=== PATIENT | male | born 1975 | race Caucasian/White ===

== ENCOUNTER 2022-08-09 15:31 | Outpatient (CLI) | payer BC, SELFPAY ==
[2022-08-09 22:20] LABS: Chloride* 100 mmol/L (96-114)
[2022-08-09 22:21] LABS: Potassium* 4.4 mmol/L (3.6-5.1); Sodium* 139 mmol/L (135-149)
[2022-08-09 22:23] LABS: Alkaline Phosphatase* 99 U/L (40-150); Aspartate Amino Transferase* 27 U/L (12-35); Bilirubin Total* 0.8 mg/dL (0.1-1.5); Blood Urea Nitrogen* 15 mg/dL (5-24); Carbon Dioxide* 27 mmol/L (20-32); Cholesterol* 227 mg/dL (90-199); Creatinine* 0.6 mg/dL (0.5-1.5); Estimated Glomerular Filt Rate 119 ml/min; Glucose* 221 mg/dL (60-115); Total Protein* 8.4 g/dL (6.0-8.3); Triglycerides* 242 mg/dL (40-149)
[2022-08-09 22:24] LABS: Alanine Aminotransferase* 28 U/L (4-50); HDL Cholesterol* 50 mg/dL (>=40); LDL Cholesterol Calculated 129 mg/dL (<100); Magnesium* 1.9 mg/dL (1.5-2.6)
[2022-08-09 22:40] LABS: Creatinine Urine 209.8 mg/dL
[2022-08-09 23:03] LABS: Microalbumin Creatinine Ratio 100 mg/g (0-30); Microalbumin Urine 21 mg/dL
[2022-08-09 23:12] LABS: Vitamin B12* 618 pg/mL (243-894)
== END 2022-08-09 15:32 | disposition home or self-care (01) ==
PROVIDERS: PCP Physician Assistant Medical; Visit Provider Family Medicine
DX: Z00.00 Encounter for general adult medical examination without abnormal findings (principal); E11.9 Type 2 diabetes mellitus without complications; I10 Essential (primary) hypertension; E66.9 Obesity, unspecified; Z13.6 Encounter for screening for cardiovascular disorders
CPT/HCPCS: 80053; 80061; 82043; 82570; 82607; 83735

== ENCOUNTER 2022-09-10 06:07 | Outpatient (CLI) | payer BC, SELFPAY | END 2022-09-10 06:08 | disposition home or self-care (01) | LOC: OP CLINIC 06:09 | PROVIDERS: PCP Physician Assistant Medical; Visit Provider Internal Medicine | DX: Z12.11 Encounter for screening for malignant neoplasm of colon (principal); K57.30 Diverticulosis of large intestine without perforation or abscess without bleeding | CPT/HCPCS: 45378; J2250; J3010 ==

== ENCOUNTER 2022-11-16 07:26 | Outpatient (CLI) | payer BC, SELFPAY | END 2022-11-16 07:27 | disposition home or self-care (01) | LOC: NFLDREF 11-17 22:06 | PROVIDERS: PCP Family Medicine; Referring Provider Family Medicine; Visit Provider Family Medicine | DX: E11.29 Type 2 diabetes mellitus with other diabetic kidney complication (principal); E11.69 Type 2 diabetes mellitus with other specified complication; E11.9 Type 2 diabetes mellitus without complications; E66.01 Morbid (severe) obesity due to excess calories; E78.5 Hyperlipidemia, unspecified; I10 Essential (primary) hypertension; R80.9 Proteinuria, unspecified | CPT/HCPCS: 80048; 80061; 82043; 82570; 82607 ==

== ENCOUNTER 2023-06-22 08:51 | Outpatient (CLI) | payer OTHER, SELFPAY | END 2023-06-22 08:52 | disposition home or self-care (01) | LOC: NFLDREF 06-23 00:37 | PROVIDERS: PCP Family Medicine; Referring Provider Family Medicine; Visit Provider Family Medicine | DX: E11.29 Type 2 diabetes mellitus with other diabetic kidney complication (principal); E11.9 Type 2 diabetes mellitus without complications; I10 Essential (primary) hypertension; R80.9 Proteinuria, unspecified | CPT/HCPCS: 82043; 82570 ==

== ENCOUNTER 2023-07-15 13:57 | Outpatient (CLI) | payer OTHER, SELFPAY | END 2023-07-15 13:58 | disposition home or self-care (01) | PROVIDERS: PCP Family Medicine; Visit Provider Family Medicine | DX: Z00.00 Encounter for general adult medical examination without abnormal findings (principal); I10 Essential (primary) hypertension; E11.9 Type 2 diabetes mellitus without complications; E66.9 Obesity, unspecified; E78.5 Hyperlipidemia, unspecified; Z12.5 Encounter for screening for malignant neoplasm of prostate | CPT/HCPCS: 80048; 84153 ==

== ENCOUNTER 2023-09-08 14:34 | Outpatient (REF) | payer OTHER, SELFPAY ==
[2023-09-08 15:13] LABS: Basophils Absolute Auto 0.02 K/uL (0.00-0.30); Basophils Percent Auto 0.3 % (0.0-3.0); Eosinophils Absolute Auto 0.07 K/uL (0.00-0.50); Hematocrit 49.1 % (37.0-53.0); Hemoglobin* 16.5 gm/dL (13.5-17.5); Immature Granulocytes Abs Auto 0.02 K/uL (0.00-0.30); Immature Granulocytes Pct Auto 0.3 %; Lymphocytes Absolute Auto 2.17 K/uL (0.90-2.90); Lymphocytes Percent Auto 29.9 % (20-44); Mean Corpuscular HGB Conc 34 gm/dL (32-36); Mean Corpuscular Hemoglobin 29 pg (26-34); Mean Corpuscular Volume 86 fL (80-100); Monocytes Percent Auto 8.6 % (0.0-11.0); Neutrophils Absolute Auto 4.35 K/uL (1.7-7.0); Neutrophils Percent Auto 59.9 % (42.0-72.0); Platelet Count* 247 K/uL (140-440); RDW Coefficient of Variation % 11.7 % (11.5-15.5); Red Blood Count 5.73 m/uL (4.30-5.90); White Blood Count* 7.25 K/uL (4.50-11.00)
[2023-09-08 15:29] LABS: Slide Review Reflex No
[2023-09-08 15:30] LABS: Chloride* 103 mmol/L (96-114); Sodium* 139 mmol/L (135-149)
[2023-09-08 15:31] LABS: Potassium* 4.5 mmol/L (3.6-5.1)
[2023-09-08 15:33] LABS: Anion Gap 11 mEq/L (7-15); Carbon Dioxide* 25 mmol/L (20-32); Creatinine* 0.6 mg/dL (0.5-1.5); Estimated Glomerular Filt Rate 118 ml/min
[2023-09-08 15:34] LABS: Blood Urea Nitrogen* 17 mg/dL (5-24); Calcium* 9.9 mg/dL (8.4-10.6); Glucose* 150 mg/dL (60-115)
[2023-09-08 16:35] LABS: Hemoglobin A1C* 8.3 % (0-5.6)
== END 2023-09-08 14:35 | disposition home or self-care (01) ==
LOC: NPINS 14:34
PROVIDERS: Orthopaedic Surgery; PCP Family Medicine
DX: Z01.818 Encounter for other preprocedural examination (principal)
CPT/HCPCS: 80048; 83036; 85025

== ENCOUNTER 2024-07-11 08:00 | Outpatient (CLI) | payer OTHER, SELFPAY | END 2024-07-11 08:01 | disposition home or self-care (01) | LOC: NFLDREF 07-12 14:51 | PROVIDERS: PCP Family Medicine; Referring Provider Family Medicine; Visit Provider Family Medicine | DX: E11.69 Type 2 diabetes mellitus with other specified complication (principal); E78.5 Hyperlipidemia, unspecified; I10 Essential (primary) hypertension; R80.9 Proteinuria, unspecified; Z12.5 Encounter for screening for malignant neoplasm of prostate | CPT/HCPCS: 80048; 80061; G0103 ==

== ENCOUNTER 2025-05-20 07:52 | Outpatient (CLI) | payer OTHER, SELFPAY | END 2025-05-20 07:53 | disposition home or self-care (01) | LOC: LKVREF 15:56 | PROVIDERS: PCP Family Medicine; Referring Provider Family Medicine; Visit Provider Family Medicine | DX: E78.5 Hyperlipidemia, unspecified (principal); E11.29 Type 2 diabetes mellitus with other diabetic kidney complication; R80.9 Proteinuria, unspecified; I10 Essential (primary) hypertension; Z12.5 Encounter for screening for malignant neoplasm of prostate | CPT/HCPCS: 80053; 80061; 82043; 82570; G0103 ==